=== PATIENT | male | born 1990 | race Caucasian/White ===

== ENCOUNTER 2020-07-15 10:21 | Emergency (ER) | payer MEDICARE, OTHER ==
--- NOTE | 2020-07-15 10:22 | EDM.PDOC ---
ED HPI GENERAL MEDICAL PROBLEM - General Stated Complaint: POSSIBLE BRONCHITIS Time Seen by Provider: 07/15/20 10:22 Source of Information: Reports: Patient History Limitations: Reports: No Limitations - History of Present Illness INITIAL COMMENTS - FREE TEXT/NARRATIVE: 30-year-old male no relevant past medical history presents for cough, sore throat, nasal congestion. Symptoms started a few days ago and have been worsening. He has been using cough drops and throat spray which mildly helped symptoms. He denies any fevers, shortness of breath, chest pain, wheezing, difficulty swallowing. Retains his sense of taste and smell - Related Data Allergies Allergy/AdvReac Type Severity Reaction Status Date / Time No Known Allergies Allergy Verified 07/15/20 10:37 Home Meds: Home Meds Azithromycin [Zithromax] 250 mg PO ASDIRECTED #6 tablet 07/15/20 [Rx] Pseudoephedrine HCl [Sudafed] 30 mg PO Q6H PRN #30 tablet 07/15/20 [Rx] ED ROS GENERAL - Review of Systems Review Of Systems: Comprehensive ROS is negative, except as noted in HPI. ED EXAM, GENERAL - Physical Exam Exam: See Below Exam Limited By: No Limitations General Appearance: Alert, WD/WN, No Apparent Distress Throat/Mouth: Other (erythematous oropharynx without exudates, uvula midline) Head: Atraumatic, Normocephalic Neck: Normal Inspection, Other (no stridor) Respiratory/Chest: No Respiratory Distress, Lungs Clear, Normal Breath Sounds, No Accessory Muscle Use Cardiovascular: Normal Peripheral Pulses, Regular Rate, Rhythm Back Exam: Normal Inspection Extremities: Normal Inspection Neurological: Alert, Normal Gait Psychiatric: Normal Affect, Normal Mood Skin Exam: Warm, Dry, Intact, Normal Color Course - Vital Signs Last Recorded V/S: Last Vital Signs Temp 98.5 F 07/15/20 10:38 Pulse 91 07/15/20 10:38 Resp 18 07/15/20 10:38 BP 121/85 07/15/20 10:38 Pulse Ox 97 07/15/20 10:38 - Re-Assessments/Exams Free Text/Narrative Re-Assessment/Exam: 07/15/20 10:48 We will get chest x-ray to rule out pneumonia. Offered patient COVID-19 testing but he declines at this time. We will follow up results and disposition accordingly. 07/15/20 11:43 Chest x-ray is unremarkable. Will d/c with Z-pack for potential early PNA and decongestant for symptomatic relief Departure - Departure Time of Disposition: 11:45 Disposition: Home, Self-Care 01 Condition: Good Clinical Impression: Nasal congestion, Cough - Discharge Information Prescriptions: Pseudoephedrine HCl [Sudafed] 30 mg PO Q6H PRN #30 tablet PRN Reason: Congestion Azithromycin [Zithromax] 250 mg PO ASDIRECTED #6 tablet Instructions: Upper Respiratory Infection, Adult, [id number] Referrals: PCP,None [Primary Care Provider] - Sepsis Event Note (ED) - Focused Exam Vital Signs: Vital Signs Temp Pulse Resp BP Pulse Ox 07/15/20 10:38 98.5 F 91 18 121/85 97
--- NOTE | 2020-07-15 11:31 | CR ---
Indication: Painful cough Comparison: None available. Technique: Single AP view chest Findings: There is no focal consolidation, effusion, or pneumothorax. The cardiomediastinal silhouette is within normal limits. The bony thorax is grossly intact. Impression: No acute cardiopulmonary abnormality. Dictated by Seth Wilkerson MD @ Jul 15 2020 11:30AM Signed by Dr. Seth Wilkerson @ Jul 15 2020 11:31AM
== END 2020-07-15 12:16 | disposition home or self-care (01) ==
LOC: MW.ED 10:21
DX: R09.81 Nasal congestion (principal); R05 Cough
CPT/HCPCS: 71045; 71045-26; 99283; 99283-25